=== PATIENT | female | born 1965 | race Caucasian/White ===

== ENCOUNTER 2017-10-03 06:45 | Day surgery (SDC) | payer OTHER ==
[2017-10-03 08:02] VITALS: BMI 24.1
[2017-10-03] MEDS ORDERED: Lidocaine Hydrochloride 5 ML INJ ONE (09:04)
[2017-10-03] MEDS ORDERED: Propofol 10 mg/ml Inj (20 ML) ONE (09:04)
[2017-10-03] MEDS ORDERED: Lactated Ringer's 1,000 ML IV ONE (09:04)
--- NOTE | 2017-10-03 09:07 | CP.SDSHP ---
Same Day Surgery H & P - History Proposed Procedure: EGD Pre-Op Diagnosis: SEE NOTES - Previous Medical/Surgical History Cardiac: Hypertension Endocrine/Metabolic: Thyroid Disease, Diabetes, Other Misc: Other Pain: 4.Moderate Pain - Allergies Allergies: Allergies No Known Allergies Allergy (Verified 10/03/17 08:01) - Physical Exam General Appearance: N Vital Signs: Vital Signs 10/03/17 08:06 Temperature 97.2 F L Pulse Rate 80 Respiratory 20 Rate Blood Pressure 130/70 O2 Sat by Pulse 100 Oximetry Mental Status: Alert & Oriented x3 Neuro: WNL Heart: Other Lungs: WNL GI: Other - {Optional Preform as Required} Breast: WNL Abdomen: Other Rectal: Other Integument: WNL : WNL Ortho: Other ENT: WNL - Impression Pt. Evaluated Today:Candidate for Anesthesia & Procedure: Yes - Date & Time Time: 09:08 Short Stay Discharge - Short Stay Discharge Admitting Diagnosis/Reason for Visit: DYSPEPSIA Disposition: HOME/ ROUTINE
[2017-10-03 09:34] VITALS: TEMP 97.8
[2017-10-03 09:56] VITALS: BP 120/52; PULSE 60; RESP 17; O2SAT 99
== END 2017-10-03 10:18 | disposition home or self-care (01) ==
LOC: C.ENDO 06:45
PROVIDERS: ATTEND Specialist
DX: K25.9 Gastric ulcer, unspecified as acute or chronic, without hemorrhage or perforation (principal); K44.9 Diaphragmatic hernia without obstruction or gangrene; B96.81 Helicobacter pylori [H. pylori] as the cause of diseases classified elsewhere; K29.50 Unspecified chronic gastritis without bleeding; E11.9 Type 2 diabetes mellitus without complications; K29.60 Other gastritis without bleeding; I10 Essential (primary) hypertension
CPT/HCPCS: 43239; 82948; 88305; 88342; J2704; J7120

== ENCOUNTER 2017-10-10 06:52 | Day surgery (SDC) | payer OTHER ==
[2017-10-10 07:53] VITALS: O2SAT 100
[2017-10-10] MEDS ORDERED: Propofol 10 mg/ml Inj (20 ML) ONE (08:23)
[2017-10-10] MEDS ORDERED: Lactated Ringer's 1,000 ML IV ONE (08:35)
--- NOTE | 2017-10-10 08:36 | CP.SDSHP ---
Same Day Surgery H & P - History Proposed Procedure: COLONSCOPY Pre-Op Diagnosis: SEE NOTES - Previous Medical/Surgical History Cardiac: Hypertension Endocrine/Metabolic: Thyroid Disease, Diabetes, Other Pain: 2.Mild Pain - Allergies Allergies: Allergies No Known Allergies Allergy (Verified 10/10/17 07:23) - Physical Exam General Appearance: N Vital Signs: Vital Signs 10/10/17 07:20 Temperature 97.7 F Pulse Rate 62 Respiratory 19 Rate Blood Pressure 126/58 L O2 Sat by Pulse 100 Oximetry Mental Status: Alert & Oriented x3 Neuro: WNL Heart: Other Lungs: WNL GI: WNL - {Optional Preform as Required} Breast: WNL Abdomen: Other Rectal: WNL Integument: WNL : WNL Ortho: WNL ENT: WNL - Impression Pt. Evaluated Today:Candidate for Anesthesia & Procedure: Yes - Date & Time Time: 08:35 Short Stay Discharge - Short Stay Discharge Admitting Diagnosis/Reason for Visit: SCREENING Disposition: HOME/ ROUTINE
[2017-10-10] MEDS ORDERED: Lidocaine 2% Jelly (5 ml) TOP ONE (08:41)
[2017-10-10] MEDS ORDERED: Belladonna-Phenobarbital PO STA (09:02)
[2017-10-10 09:10] VITALS: TEMP 98.8
[2017-10-10 09:51] VITALS: BP 101/58; PULSE 60; RESP 14
== END 2017-10-10 10:05 | disposition home or self-care (01) ==
LOC: C.ENDO 06:52
PROVIDERS: ATTEND Specialist
DX: Z12.11 Encounter for screening for malignant neoplasm of colon (principal); E11.9 Type 2 diabetes mellitus without complications; I10 Essential (primary) hypertension; K64.4 Residual hemorrhoidal skin tags; K64.8 Other hemorrhoids; K57.30 Diverticulosis of large intestine without perforation or abscess without bleeding
CPT/HCPCS: 45380; 82948; 88305; J2001; J2704; J7120